=== PATIENT | female | born 1970 | race Caucasian/White ===

== ENCOUNTER 2019-10-27 20:58 | Emergency (ER) | payer BC ==
[2019-10-27] MEDS ORDERED: DIPH/PERTUSS(ACELL)/TETANUS VAC/PF 0.5 ML SYR (>=10YO) IM ONE (21:16)
--- NOTE | 2019-10-27 21:18 | ER Document Report ---
ED Medical Screen (RME) - General Chief Complaint: Finger Injury Stated Complaint: CUT ON RIGHT FINGER Time Seen by Provider: 10/27/19 21:11 Primary Care Provider: EDWARD BYRD MD [Primary Care Provider] - Follow up as needed Mode of Arrival: Ambulatory Information source: Patient Notes: 49-year-old female presented to ED for complaint of a skin avulsion to the end of the right ring finger. She is alert oriented respirations regular nonlabored speaking in full sentences. She states she was trying to cut was a mandolin when she cut the end of her finger off. She states she had the end of her finger with her but I did explain to her that it could not be reattached. She states she does not know when her last tetanus immunization was so we have ordered her an immunization. Patient is alert oriented respirations regular nonlabored. The bleeding was under control. She is not on any blood thinners. I have greeted and performed a rapid initial assessment of this patient. A comprehensive ED assessment and evaluation of the patient, analysis of test results and completion of medical decision making process will be conducted by an additional ED providers. Physical Exam - Vital signs Vitals: Temp Pulse Resp BP Pulse Ox 98.0 F 97 20 144/101 H 98 10/27/19 21:03 10/27/19 21:03 10/27/19 21:03 10/27/19 21:03 10/27/19 21:03 Course - Vital Signs Vital signs: Temp Pulse Resp BP Pulse Ox 98.0 F 97 20 144/101 H 98 10/27/19 21:03 10/27/19 21:03 10/27/19 21:03 10/27/19 21:03 10/27/19 21:03 Doctor's Discharge - Discharge Referrals: EDWARD BYRD MD [Primary Care Provider] - Follow up as needed
--- NOTE | 2019-10-27 21:57 | RADIOLOGY REPORT (SQ) ---
EXAM DESCRIPTION: XR FINGERS COMPLETED DATE/TME: 10/27/2019 21:16 CLINICAL HISTORY: 49 years, Female, Ring finger avulsion COMPARISON: None. NUMBER OF VIEWS: 3 TECHNIQUE: Frontal, oblique, and lateral radiographs were obtained LIMITATIONS: None. FINDINGS: Overlying bandage about the fourth digit obscures fine bony detail. Visualized is diffuse soft tissue swelling about the fourth digit. Otherwise, no definitive acute fracture or dislocation is evident. No obvious retained radiopaque foreign body. IMPRESSION: Limitations, as above. Otherwise, diffuse soft tissue swelling about the fourth digit without underlying acute osseous anomaly or retained radiopaque foreign body. copyright 2010 [employer]- All Rights Reserved
--- NOTE | 2019-10-27 21:59 | ER Document Report ---
HPI - HPI Patient complains to provider of: finger laceration Time Seen by Provider: 10/27/19 21:48 Onset: Just prior to arrival Onset/Duration: Sudden Pain Level: 2 Context: Patient was using a mandolin vegetable slicer this evening and accidentally cut her right fourth fingertip. Patient unsure of last tetanus immunization. Patient states that she had difficulty in getting the wound to stop bleeding. Exacerbated by: Movement Relieved by: Denies Similar symptoms previously: No Recently seen / treated by doctor: No - ROS ROS below otherwise negative: Yes Systems Reviewed and Negative: Yes All other systems reviewed and negative - NEURO Neurology: DENIES: Weakness - REPRODUCTIVE Reproductive: DENIES: : - MUSCULOSKELETAL Musculoskeletal: REPORTS: Extremity pain - DERM Skin Color: Normal Skin Problems: Laceration Past Medical History - General Information source: Patient - Social History Smoking Status: Never Smoker Frequency of alcohol use: Occasional Drug Abuse: None Occupation: [employer] Lives with: Family Family History: Reviewed & Not Pertinent Patient has suicidal ideation: No Patient has homicidal ideation: No - Past Medical History Cardiac Medical History: Reports: Hx Hypercholesterolemia, Hx Hypertension Past Surgical History: Reports: Hx Hysterectomy Vertical Provider Document - CONSTITUTIONAL Agree With Documented VS: Yes Exam Limitations: No Limitations General Appearance: WD/WN, No Apparent Distress - HEENT HEENT: Atraumatic, Normocephalic - NECK Neck: Normal Inspection - RESPIRATORY Respiratory: No Respiratory Distress - CARDIOVASCULAR Pulses: Normal: Radial - MUSCULOSKELETAL/EXTREMETIES Musculoskeletal/Extremeties: MAEW, FROM - NEURO Level of Consciousness: Awake, Alert, Appropriate Motor/Sensory: No Motor Deficit - DERM Integumentary: Warm, Dry, Laceration - Avulsion laceration to distal tip of right fourth finger involving the nail, patient with blood clot in place and no active bleeding at this time Course - Re-evaluation Re-evalutation: Patient's bleeding restarted after wound was cleansed. Tech was unable to get bleeding stopped with application of Gelfoam dressing. Quick clot dressing was then applied which was able to stop the bleeding. Wound was then dressed. Good return precautions were discussed with patient. - Vital Signs Vital signs: Temp Pulse Resp BP Pulse Ox 98.0 F 97 20 144/101 H 98 10/27/19 21:03 10/27/19 21:03 10/27/19 21:03 10/27/19 21:03 10/27/19 21:03 - Diagnostic Test Radiology reviewed: Pending, Image reviewed Discharge - Discharge Clinical Impression: Skin avulsion Nail avulsion, finger Qualifiers: Encounter type: initial encounter Qualified Code(s): S61.309A - Unspecified open wound of unspecified finger with damage to nail, initial encounter Condition: Stable Disposition: HOME, SELF-CARE Instructions: Avulsion Injury (OM), Tetanus Immunization Given ([facility]) Additional Instructions: Return immediately for any new or worsening symptoms Followup with your primary care provider, call tomorrow to make a followup appointment Check wound daily for any signs of infection such as redness, streaks, fever or purulent drainage. Referrals: EDWARD BYRD MD [Primary Care Provider] - Follow up as needed
[2019-10-27 23:44] VITALS: BP 132/89
== END 2019-10-27 23:39 | disposition home or self-care (01) ==
LOC: ER 20:58
DX: S61.314A Laceration without foreign body of right ring finger with damage to nail, initial encounter (principal); W26.8XXA Contact with other sharp object(s), not elsewhere classified, initial encounter; Y93.G9 Activity, other involving cooking and grilling; Z23 Encounter for immunization
CPT/HCPCS: 90471; 90715; 99283